=== PATIENT | female | born 2000 | race Caucasian/White ===

== ENCOUNTER 2021-11-22 14:20 | Emergency (ER) | payer OTHER, MEDICAID, SELFPAY ==
[2021-11-22 14:31] VITALS: BP 145/93; PULSE 143; RESP 16; TEMP 37.3; O2SAT 99
--- NOTE | 2021-11-22 14:55 | ED.GENADULT ---
HPI - General Adult General Chief complaint: Upper Respiratory Infection Stated complaint: Body ache, fever, nausia Source: patient Mode of arrival: ambulatory History of Present Illness HPI narrative: Patient presents for evaluation of sick symptoms since yesterday. Symptoms include fever, chills, sore throat, cough, nausea, body aches. She is requesting a flu test. She has had COVID three times in the past. History of tonsillectomy and states that she has never had strep since his surgery. On arrival she is tachycardic. She state she has underlying HTN and tachycardia. She states she tends to have tachycardia when she is anxious and she feels anxious currently. She denies chest pain and palpitations. She does not smoke. She took a home COVID test last night which was negative. Related Data Home Medications Medication Instructions Recorded Confirmed No Home Medications 11/22/21 11/22/21 Allergies Allergy/AdvReac Type Severity Reaction Status Date / Time No Known Allergies Allergy Verified 11/22/21 15:22 Review of Systems Review of Systems: CONSTITUTIONAL: Reports fever and chills. EYES: Denies visual changes, redness, or discharge. ENT: Reports sore throat. Denies rhinorrhea, congestion, or otalgia. CARDIOVASCULAR: Denies chest pain, palpitations, or edema. RESPIRATORY: Reports cough. Denies SOB. GASTROINTESTINAL: Reports nausea. Denies abdominal pain, vomiting, or diarrhea. GENITOURINARY: Denies dysuria or hematuria. SKIN: Denies rash or itching. MUSCULOSKELETAL: Reports body aches NEUROLOGIC: Denies headache, numbness, dizziness, or weakness. PSYCHIATRIC: Denies anxiety or depression. [facility] Past Medical History Medical History (Updated 11/22/21 @ 15:56 by ROSALBA Moscoso, MELANIE) Hypertension Tachycardia Surgical History Surgical History History of tonsillectomy Family History Family History Mother Family history non-contributory Social History Social History Alcohol intake: current Alcohol use details: social Substance use: never Living arrangements: with family Gender identity (if verbalized by the patient): Female Sexual Orientation (if Verbalized by the Patient): Straight or Heterosexual Spiritual care concerns: No Exam Narrative: GENERAL: Well-appearing, well-nourished, and in no acute distress. HEAD: Normocephalic, atraumatic. EYES: PERRLA and EOMI. ENT: Nares clear, no rhinorrhea or epistaxis. Mucous membranes moist. Posterior pharyngeal erythema. Tonsils are surgically absent. Bilateral TMs pearly carvalho nonbulging NECK: Supple. No adenopathy or masses. No carotid bruits or JVD CHEST: Clear to auscultation. No respiratory distress. No wheezes rales or rhonchi HEART:Rate 130. No murmur heard. Normal peripheral pulses. ABDOMEN: Soft, nontender, nondistended, normal active bowel sounds. EXTREMITIES: Normal range of motion. No edema. SKIN: Warm, dry, no rash. NEURO: No focal deficits. Alert and oriented x3. PSYCH: Normal mood and affect. Course Course Emergency Course: This is a 21-year-old female who presented for evaluation of sick symptoms. She was tachycardic. Advised multiple times that I thought she should go to the ER for further evaluation. Her COVID was positive. I did advise that in the setting of COVID I would be concerned about PE. She states she does not have any chest pain shortness of breath or palpitations. I did advise that failure to identify PE could result in . She verbalized understanding. She is and elected to avoid paxlovid. I advise she remain hydrated and follow-up outpatient for further evaluation and treatment. I did advise once again that she consider going to the emergency department. Patient verbalized understanding but opted n
[2021-11-22 16:11] VITALS: PULSE 90
== END 2021-11-22 16:11 | disposition home or self-care (01) ==
PROVIDERS: Emergency Provider Nurse Practitioner
DX: U07.1 COVID-19 (principal); I10 Essential (primary) hypertension
CPT/HCPCS: 87426; 87804; 99213; C9803; G0463